=== PATIENT | male | born 1950 | race Caucasian/White ===

== ENCOUNTER 2019-08-28 06:45 | Day surgery (SDC) | payer MEDICARE ==
[2019-08-27 12:24] LABS: HEMATOCRIT 47.8 % (42.0-54.0); HEMOGLOBIN 16.7 g/dL (13.5-17.5); MCH 31.3 pg (26.0-34.0); MCHC 34.9 g/dL (31.0-37.0); MCV 89.5 fL (80.0-100.0); MEAN PLATELET VOLUME 9.1 fL (7.4-10.4); RBC 5.34 10x6/uL (4.20-6.10); RDW 12.7 % (11.5-14.5); WBC 8.3 10x3/uL (4.8-10.8)
[2019-08-27 12:41] LABS: ANION GAP 12.8 mmol/L (8-16); CALCIUM 9.4 mg/dL (8.5-10.1); CARBON DIOXIDE 30.8 mmol/L (21.0-32.0); CREATININE - SERUM 1.3 mg/dL (0.6-1.3); POTASSIUM - SERUM 3.6 mmol/L (3.5-5.1)
[~2019-08-28] VITALS: Ht 182.9 cm; Wt 99.8 kg
[~2019-08-28 06:45] MED LIST: FENOFIBRATE PO; GABAPENTIN300 MG PO; HYDROCHLOROTH12.5 M1 PO; NORCO 10/325 TA1 TA1 PO; PERCOCET 10/3251 TA1 PO; ULTRAM50 MG PO; ZANAFLEX4 MG PO
[2019-08-28 07:59] VITALS: BP 145/83; Ht 182.9 cm; Wt 99.8 kg
[2019-08-28] MEDS ORDERED: HYDROCODON-ACE1 EA10 PO (09:50)
--- NOTE | 2019-09-01 08:42 | OP ---
PATIENT NAME: ANGELICA SWAIN MEDICAL RECORD: [id number] :50 LOCATION:[facility] ADMISSION DATE: SURGEON: MARÍA ELENA NOGUERA MD DATE OF OPERATION: 08/28/2019 PREOPERATIVE DIAGNOSES: 1. Impingement syndrome of the right shoulder. 2. Biceps tendinitis to right shoulder. POSTOPERATIVE DIAGNOSES: 1. Impingement syndrome of the right shoulder. 2. Biceps tendinitis to right shoulder. PROCEDURES: 1. Arthroscopic biceps tenotomy of the right shoulder. 2. Arthroscopic distal clavicle excision done through separate incision - 1 cm arthroscopically. 3. Arthroscopic subacromial decompression with acromioplasty and bursectomy. SURGEON: María Elena Noguera MD LENS CEMENTER: LAURENCE Lemus INTRAOPERATIVE COMPLICATIONS: None. 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 The patient's biceps tendon was extremely tendinopathic and was released. OPERATIVE SUMMARY IN DETAIL: After obtaining the appropriate preoperative orthopedic surgery consent as well as anesthetic consultation, evaluation and clearance, the patient was brought to the operating room and placed on the operating table in supine position. After adequate general laryngeal mask airway was administered, the patient was placed in left lateral decubitus position. All pressure points were well padded to include down leg peroneal pad as well as axillary roll. The patient was held firmly to the operating table using the vacuum pack suction system. Right upper extremity and shoulder were then prepped and draped in routine sterile fashion. The arm was held in the Arthrex traction boom at 30 degrees of forward flexion, 30 degrees of abduction, 10 pounds of traction laterally. Arthroscopy was then established in the glenohumeral joint from the posterior portal. Anterior portal was established in the anterior safe interval. Diagnostic arthroscopy did show some bicipital labral tearing. Gentle labral debridement was then followed by complete release of the biceps tendon at the bicipital labral junction. Having completed this, attention was turned to subacromial space. While on subacromial space, accessory lateral portal was created through which surface tissue ablation system was utilized to denude the undersurface of the acromion of all soft tissue elements and release the coracoacromial ligament. The capsule of the AC joint was likewise released in its entirety. A 5.0 barrel bur was then used to perform acromioplasty at the level of acromioclavicular joint. Then, under direct arthroscopic visualization, distal clavicle was excised for 1 cm. Having completed this, attention returned to the rotator cuff. There was substantial amount of bursitis that was taken down anteriorly, laterally, posteriorly and superficially rotator cuff attritional tearing was seen. At no point was OPERATIVE REPORT [id number] ANGELICA SWAIN greater than approximately 10% of the thickness of the cuff. Having completed this, the arthroscopy portals were closed in routine interrupted fashion using 4-0 Prolene done by LAURENCE Lemus. The patient was then awakened and taken to the recovery room in stable condition. All final needle and sponge counts were correct. 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
== END 2019-08-28 12:00 | disposition home or self-care (01) ==
LOC: D.OPS 06:45 → D.PAN 09:00 → D.OPS 10:15 → D.PAN 14:05 → D.OPS 14:30
PROVIDERS: Anesthesiology; ATTEND Orthopaedic Surgery
DX: M75.41 Impingement syndrome of right shoulder (principal); M75.21 Bicipital tendinitis, right shoulder; M75.101 Unspecified rotator cuff tear or rupture of right shoulder, not specified as traumatic; M25.511 Pain in right shoulder